=== PATIENT | female | born 1955 | race Caucasian/White ===

== ENCOUNTER → 2020-03-04 | Day surgery (SDC) | payer OTHER, SELFPAY ==
--- NOTE | 2020-03-04 14:01 | RAD REPORT ---
EXAM DESCRIPTION: US - Biopsy Lymph Node - 03/04/2020 11:38 am CLINICAL HISTORY: Right axillary lymphadenopathy . TECHNIQUE: Risks, benefits and alternatives to the procedure were explained and informed consent obt ained Skin and subcutaneous tissues anesthetized with Lidocaine. Under sonographic guidance, a 17 gauge nee dle was placed into the 7 x 5 millimeter hypoechoic lymph node within the right axilla. An 18 gauge n eedle was then advanced through this two 1 centimeter core specimens obtained and given to pathology. Patient experienced no immediate complication IMPRESSION: Right axillary lymph node biopsy
--- NOTE | 2020-03-04 14:02 | RAD REPORT ---
EXAM DESCRIPTION: US - Breast Core BX w/US Guidance - 03/04/2020 11:38 am CLINICAL HISTORY: ICD R 92.8 COMPARISON: Outside breast ultrasound TECHNIQUE: The risks, benefits alternatives to the procedure were explained to the patient and infor med consent obtained. Skin and breast tissues anesthetized with lidocaine. Under sonographic guidance, two 14 gauge vacuum assisted core biopsies of the 2.7 centimeters mass wi thin the retroareolar region of the right breast were obtained. 2 centimeter specimens taken. Materials given to pathology. Subsequently a localizing clip was placed into the mass. Patient experienced no immediate complication IMPRESSION: Vacuum assisted core biopsies of the right breast mass
== END ==
LOC: DS 09:46
PROVIDERS: ATTEND Nurse Practitioner
DX: C50.911 Malignant neoplasm of unspecified site of right female breast (principal); Z17.0 Estrogen receptor positive status [ER+]; R93.89 Abnormal findings on diagnostic imaging of other specified body structures
CPT/HCPCS: 19083; 38505; 76942; 88305

== ENCOUNTER 2020-09-07 07:28 | Day surgery (SDC) | payer OTHER ==
--- NOTE | 2020-09-03 09:13 | RAD REPORT ---
EXAM DESCRIPTION: RAD - Chest Pa And Lat (2 Views) - 09/03/2020 8:53 am CLINICAL HISTORY: Preop Chest pain. COMPARISON: No comparisons FINDINGS: The lungs are mildly emphysematous but clear. The heart is upper limit of normal in size. No displaced fractures. IMPRESSION: Mild diffuse COPD.
[2020-09-03 09:19] LABS: Absolute Lymphocytes (CBC) 1.6 K/uL (0.7-4.9); Basophils % 0.3 % (0-1.3); Hematocrit 35.6 % (36.0-45.0); Lymphocytes % 26.2 % (15.3-44.8); MPV 7.3 fL (7.6-11.3)
[2020-09-03 09:31] LABS: BUN Blood Urea Nitrogen 10 mg/dL (7-18); Bicarbonate 28 mmol/L (21-32); Glucose Level 96 mg/dL (74-106); Potassium 3.6 mmol/L (3.5-5.1); Protime INR 1.05; Sodium Level 138 mmol/L (136-145)
[2020-09-07] MEDS ORDERED: CEFAZOLIN/SWI 1gm 0 GM/0 ML SYR ONE (08:09)
[2020-09-07] MEDS ORDERED: Ringers Lactate 1,000 ML IV ONE (08:09)
[2020-09-07 08:32] VITALS: BP 130/75; TEMP 98.2; O2SAT 98
--- NOTE | 2020-09-07 09:24 | RAD REPORT ---
EXAM DESCRIPTION: US - BREAST/AXILLA, LIMITED - 09/07/2020 9:15 am CLINICAL HISTORY: Right breast neoplasm COMPARISON: February 2020 FINDINGS: The patient was referred for an ultrasound-guided needle localization of the right breast neoplasm. The patient has received chemotherapy. Sonographic evaluation of the retroareolar region of the right breast did not demonstrate a mass. The localizing clip was not clearly visualized. IMPRESSION: The right breast mass could not be localized under sonographic guidance as it has marked ly diminished in size status post chemotherapy.
--- NOTE | 2020-10-15 12:02 | P.PN ---
operation cancelled when needle localization unable to locate mass in breast
== END 2020-09-07 09:35 | disposition home or self-care (01) ==
LOC: OR 07:28
PROVIDERS: ATTEND Surgery
DX: C50.919 Malignant neoplasm of unspecified site of unspecified female breast (principal); Z53.9 Procedure and treatment not carried out, unspecified reason; Z20.822 Contact with and (suspected) exposure to COVID-19
CPT/HCPCS: 93005; 85025; 80048; 36415; 85610; 85730; 71046; 76642; U0002; J7120; J0690

== ENCOUNTER 2020-09-10 09:06 | Day surgery (SDC) | payer OTHER ==
[2020-09-10] MEDS ORDERED: Ringers Lactate 1,000 ML IV ONE (09:36)
[2020-09-10] MEDS: CEFAZOLIN/SWI 1gm 1 GM/10 ML SYR ONE ×4 (11:09→12:03)
[2020-09-10] MEDS: METHYLENE BLUE 0.5% 10 ML AMP ONE ×2 (11:09→11:45)
[2020-09-10] MEDS ORDERED: BUPIVACA 0.5%/EPI 0.0005%/PF 30 ML VIAL ONE (11:12)
[2020-09-10] MEDS ORDERED: dexAMETHasone 10 MG/ML VIAL ONE (11:15)
[2020-09-10] MEDS ORDERED: LIDOCAINE 2% MPF 5 ML VIAL ONE (11:15)
[2020-09-10] MEDS ORDERED: ONDANSETRON 4 MG/2 ML VIAL ONE ×2 (11:15→14:41)
[2020-09-10] MEDS ORDERED: KETOROLAC 30 MG/ML INJ ONE (11:15)
[2020-09-10] MEDS ORDERED: MIDAZOLAM HCL 2 MG/2 ML INJ ONE (11:15)
[2020-09-10] MEDS ORDERED: FENTANYL CITR 100 MCG/2 ML ONE (11:15)
[2020-09-10] MEDS ORDERED: propofoL 200 MG/20 ML VIAL IV ONE (11:15)
[2020-09-10] MEDS ORDERED: BUPIVACAINE 0.25% PF 30 ML VIAL ONE (11:30)
[2020-09-10] MEDS ORDERED: HYDROMORPHONE HCL 1 MG/ML INJ ONE (13:45)
--- NOTE | 2020-09-10 14:00 | OP ---
Date of Procedure: 09/10/2020 Surgeon: Kaz Hong MD, Brief History Of Present Illness: The patient is a 64-year-old female, who presented to me with trip le hormone positive ER/WV, HER-2 positive breast cancer, who received neoadjuvant chemotherapy for in vasive triple hormone positive breast cancer on the right breast and then posterior to the nipple are olar complex is approximately 2.7 cm in size. She had received her neoadjuvant chemotherapy and was deemed appropriate for breast conservation therapy. I had discussed the surgical options with the pa tierobyn including mastectomy, lumpectomy, and the need for sentinel lymph node biopsy, and possible axi llary dissection. She agreed to proceed with the plan as described above. I attempted to have the p atient to get a needle localization; however, ultrasound was unable to note the location of the breas t mass on imaging due to her significant positive pathologic response to neoadjuvant chemotherapy. A s such, the discussion entailed taking the nipple-areolar complex and posterior tissues, which is whe re the location of this mass was. A resolution clip was placed during the initial biopsy as well and we would locate this as a postoperative specimen. As such, we proceeded with surgery with the above stated plan. 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 Procedures Performed: 1.A right breast lumpectomy. 2.[place] lymph node biopsy. Anesthesia: General endotracheal plus local with 0.25% Marcaine without epinephrine. Estimated Blood Loss: Less 10 cc. Specimens: 1.Right breast mass with nipple-areolar complex. 2.Right sentinel lymph node. Findings: 1.Blue lymph node was identified using lymphoscintigraphy and background radiation was found to be l ess than 5% of the lymph node in-Vivo/ex-Vivo. 2.Clip was found in the right breast mass verified with Faxitron mammography of the removed specimen and touch preps were negative on all specimens for any evidence of cancer at the superficial margins . Complications: None. Disposition: Transferred to the recovery room in good condition. Procedure In Detail: After informed consent was obtained, the patient was brought to the operating r oom and prepped and draped in the usual sterile fashion. After adequate anesthesia was achieved, I i njected the area of the right breast nipple-areolar complex and the breast was massaged for approxima tely 5 minutes to allow for drainage of the methylene blue into the dermal lymphatics and to the sent inel lymph nodes. Lymphoscintigraphy had been performed this morning earlier and I used the isotope probe to identify the background injection site. This was noted in the log as well as in the axilla and in-Vivo counts were taken of these areas. At this point, I opted to make an elliptical incision around the nipple-areolar complex and down to subcutaneous tissues. I dissected using a 15-blade edwardo ctrocautery to dissect circumferentially around the previously noted 2.7 cm retroareolar mass down to the prepectoral fascia. I circumferentially removed all this tissue and placed marking stitches justin rt superior, long lateral, and sent it off for pathologic examination and Faxitron affect. The area was copiously irrigated. Hemostasis was easily achieved with electrocautery and the specimen was hel d at this point. Faxitron verified position of a clip found from the previously performed biopsy and as such, the specimen was sent to pathology for touch prep. All touch preps appeared negative on th e superficial aspects of this right breast mass for any evidence of mass at the periphery indicating likely negative margins. As such, I proceeded to irrigate the area once again. No additional hemost atic measures required and I closed the deep dermal layers with interrupted 3-0 Vicryl and a 4-0 Dillon cryl was used to close the skin in a running fashion. Dermabond was placed over top. I then turned my attention to the axilla and using mapping between the pectoralis and latissimus dorsi, the gamma p robe was used once again to identify the area of highest focus in the right axilla. A small lateral incision approximately 2 cm in size was taken down through the subcutaneous tissues and dissection co ntinued down to the clavipectoral fascia and the axilla was entered at this point. Using guidance of the gamma probe, I found a blue lymph node which was identified as a sentinel lymph node and its cou nts were almost 900. I removed this after placing clips in the periphery of this and closing all lym phatic channels that accessed to this particular lymph node. At this point, I removed the lymph node and sent it off for pathologic examination. Counts were taken ex-Vivo as well and noted in the log. Background radiation was less than 60 in the residual axilla and as such, no additional lymph nodes were identified. At this point, the area was copiously irrigated and a touch prep and verification of negative lymph node were performed at this point as there was no evidence of cancer in the sentine l lymph node on frozen section. I opted to closed at this point using interrupted 3-0 Vicryl sutures in the deep dermal plane as well as 4-0 Monocryl in the skin level and Dermabond was placed over top . The patient tolerated the procedure well without evidence of complication and was transferred to P [facility] in good condition. All counts were correct at the end of the case. CRISTY/FANNY Voice ID: [id number] Report ID: [id number]
[2020-09-10 14:15] VITALS: BP 120/74; TEMP 97.7; O2SAT 96
== END 2020-09-10 15:07 | disposition home or self-care (01) ==
LOC: OR 09:06
PROVIDERS: ATTEND Surgery
PROC: 07B50ZX Excision of Right Axillary Lymphatic, Open Approach, Diagnostic (ICD-10-PCS; 2020-09-10)
PROC: 0HBT0ZZ Excision of Right Breast, Open Approach (ICD-10-PCS; principal; 2020-09-10 12:30)
DX: D05.11 Intraductal carcinoma in situ of right breast (principal); Z20.822 Contact with and (suspected) exposure to COVID-19
CPT/HCPCS: 19301; 88329; 88307; 88333; 88334; 38500; J2704; J2250; J3010; J1100; J1170; J0690; J7120; J2405 ×2